=== PATIENT | male | born 1965 | race Caucasian/White ===

== ENCOUNTER 2019-09-18 02:48 | Inpatient (IN) | payer MEDICAID ==
[~2019-09-18] VITALS: Ht 182.9 cm; Wt 61.7 kg
[2019-09-18 02:30] VITALS: BP 133/87
--- NOTE | 2019-09-18 04:25 | NUR ---
The patient, PATRICK BROOKS, 54 y/o, M admitted by YORDAN TRENT MD, was given written information regarding hospital policies, unit procedures and contact persons. Valuables were checked and left with patient. took wedding band home .
[2019-09-18 07:00] VITALS: BP 119/77
[2019-09-18] MEDS: PIPERACILLIN/TAZOBACTAM 3.375 GM in IV NORMAL SALINE 50ML 50 ML IV SCH ×4 (07:23→23:07)
[2019-09-18 08:59] LABS: BASO % 0 % (0-3); EOS % 0 % (0-3); HEMOGLOBIN 13.8 g/dL (13.0-17.5); LYMPH # 1.4 x10^3/uL (1.0-4.8); LYMPH % 35 % (24-48); MEAN CORPUSCULAR HEMOGLOBIN 29 pg (25-35); MEAN CORPUSCULAR HGB CONC 33 g/dL (31-37); MEAN CORPUSCULAR VOLUME 87 fL (79-100); MONO # 0.1 x10^3/uL (0.0-1.1); MONO % 3 % (0-9); NEUT # 2.4 x10^3/uL (1.8-7.7); NEUT % 62 % (31-73); PLATELET COUNT 308 x10^3/uL (140-400); RED BLOOD COUNT 4.81 x10^6/uL (4.30-5.70); RED CELL DISTRIBUTION WIDTH 13.8 % (11.5-14.5); WHITE BLOOD COUNT 3.9 x10^3/uL (4.0-11.0)
[2019-09-18 09:10] LABS: CALCIUM 8.6 mg/dL (8.5-10.1); CREATININE 0.8 mg/dL (0.7-1.3); GFR 101.1; POTASSIUM 3.6 mmol/L (3.5-5.1)
--- NOTE | 2019-09-18 09:13 | HP ---
ADMIT DATE: 09/18/2019 HISTORY OF PRESENT ILLNESS: The patient is a 54-year-old male patient, who presented to the Emergency Room complaining of cough, shortness of breath, fever and sputum, which is clear. He also complained of weight loss of about 15 pounds. Apparently, all his family has been sick since [place], states that they all got over it except him. He is so short of breath that he had quit smoking 2 days ago. He apparently had a significant history of non-Hodgkin lymphoma in 2005 for which he underwent chemotherapy and radiation; however, he did not do any yearly followup. The patient has denied any recent travel, any drug abuse; however, he continued to smoke tobacco and marijuana. He was extensively investigated in the Emergency Room of [facility]. His lab work showed that his white cell count was normal. His chemistry was unremarkable except the lactic acid was slightly elevated at 2.3. His D-dimer was extremely high at 12.38 mg. Urinalysis was essentially unremarkable and toxic screen was positive for cannabinoids. His influenza A and B were negative. Given the elevated D-dimer, he had a chest x-ray, which showed that he has linear fibrotic changes in the left suprahilar region; left apical pleural scarring, thickening; he has also emphysematous changes that are seen with no lobar consolidation. A CT scan of the chest showed that the patient has no pulmonary arterial emboli; he has left upper lobe 8 x 4 x 3 cm thick-walled cavitation with wall thickness up to 1.2 cm with numerous satellite nodules, largest of which measures 4.1 cm, this raises a concern for cavitary lung malignancy with satellite lesion; has pulmonary edema, bronchial wall thickening, maybe bronchitis; 5 extensive areas of bony sclerosis throughout the thoracic and lumbar spine as well as right first rib, raising concern for osteoblastic metastatic disease or cyst lymphoma would also be a consideration given history of non-Hodgkin lymphoma. Therefore, he was transferred to [facility] to consult the oncologist as well as the administrative processor. PAST MEDICAL HISTORY: Significant for non-Hodgkin lymphoma treated with chemotherapy and radiation in 2005. PAST SURGICAL HISTORY: Significant for bilateral inguinal hernia repair. ALLERGIES: He has no known drug allergies. MEDICATIONS: He is currently on no medication. FAMILY HISTORY: He has 2 brothers and 2 sisters. His younger sister of leukemia at the age of 53. Father at the age of 57 because of diabetes and myocardial infarction. Mother in her 70s from massive cerebrovascular accident. SOCIAL HISTORY: He is , has 2 daughters and 1 son. He smokes a pack a day, does not drink alcohol, but does smoke marijuana. 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 REVIEW OF SYSTEMS: As per history of present illness. PHYSICAL EXAMINATION: GENERAL: On examining him, he looked well and was clearly in no apparent respiratory distress. No pallor, jaundice, cyanosis or thyromegaly. No jugular venous distention. No lower limb edema. However, he was clearly cachectic. VITAL SIGNS: His heart rate was 81, blood pressure was 109/78, temperature 97.7, respiratory rate 20 and oxygen saturation was 96%. HEAD, EYES, EARS, NOSE AND THROAT: Showed normocephalic, atraumatic. NECK: Supple. HEART: Showed normal first and second heart sounds. No gallop or murmur. CHEST: Showed central trachea, equal bilateral expansion, air entry, vesicular breath sounds. I could not appreciate any crepitation or rhonchi. ABDOMEN: Distended, soft, nontender. NEUROLOGICAL: He was awake, alert, responding appropriately. All his cranial nerves are intact. EXTREMITIES: He moves extremities without difficulty, ambulates without assistance or assistive devices. LABORATORY DATA: His white cell count was 7000, hemoglobin 14, hematocrit 43, MCV 88 and platelet count 291,000 with normal manual differential. His prothrombin time was 9.9, INR was 1, APTT was 23, and D-dimer was 12.38. His chemistry showed a serum sodium of 142, potassium 4, chloride 105, bicarbonate 27, anion gap of 10, BUN 13, creatinine 0.7, estimated GFR was 118 mL per minute, his glucose was 113, calcium was 8.7. Lactic acid was 2.3. Magnesium was 1.9. His total bilirubin, AST and ALT were normal. Alkaline phosphatase slightly elevated. CK was 60. Beta natriuretic peptide was 172. Total protein 7, albumin was 3.3 and serum lipase was 153. Urinalysis was essentially unremarkable. Toxic screen was positive for cannabinoids. His influenza A and B were negative. PLAN: I did start him on IV Zosyn, and I have consulted the administrative processor as well as the oncologist for possible either an abscess or cavitating malignancy. YORDAN TRENT MD DR: KIERAN/pop JOB#: [id number] / [id number]
--- NOTE | 2019-09-18 09:19 | CONS ---
DATE OF CONSULTATION: 09/18/2019 MEDICAL ONCOLOGY CONSULTATION REQUESTING PHYSICIAN: Dr. Azucena Farooq. REASON FOR CONSULTATION: Left upper lobe lung mass along with satellite lung lesions and bone lesions concerning for malignancy. HISTORY OF PRESENT ILLNESS: The patient is a 54-year-old gentleman who has had dry cough, poor appetite and feeling sick since 08/2019. He reports a 15-pound weight loss and poor appetite during this period. He denies any hemoptysis. No significant dyspnea. No chest pain. No fevers, chills or night sweats. He presented to with these complaints on 09/17/2019. He had mild symptoms of dyspnea at that point. He underwent a CT angiogram of the chest with contrast on 09/17/2019 at , which revealed left upper lobe, thick-walled cavitation with wall thickness of up to 1.3 cm with a total size of the lesion measuring 8 x 4 x 3 cm with numerous satellite nodules, largest of which is 4.1 cm raising a concern for cavitary lung malignancy with satellite lesions. There is evidence of pulmonary emphysema. Extensive area of bony sclerosis throughout the thoracic and lumbar spine as well as the right 1st rib, raising concern for osteoblastic metastatic disease. Lymphoma is also in the differential diagnosis. I was asked to see the patient for further evaluation of these lesions and concern for malignancy. PAST MEDICAL HISTORY: Non-Hodgkin's lymphoma in 2006, status post chemotherapy by Dr. Saravia. He reports that he achieved complete remission. He mentions that he had lesions in the peripancreatic lymph nodes and in the colon. SOCIAL HISTORY: He has a history of cigarette smoking under a pack a day since the age of 21. Approximately, he had a [id number] smoking history at the time of admission. FAMILY HISTORY: Mother had stroke. He is not sure if she had a malignancy. REVIEW OF SYSTEMS: A 12-point review of system was performed. Pertinent positives are mentioned in the history of present illness. Rest of the system review is negative. PHYSICAL EXAMINATION: GENERAL APPEARANCE: The patient is a 54-year-old gentleman who is in no acute cardiorespiratory distress. VITAL SIGNS: Blood pressure 119/77, temperature 98.6. HEENT: Head is atraumatic, normocephalic. EYES: No icterus. NECK: Supple. CHEST: Bilaterally symmetrical. HEART: S1, S2 normal. ABDOMEN: Soft, nontender. CENTRAL NERVOUS SYSTEM: No focal deficits. LYMPHATICS: No lymphadenopathy. SKIN: No rashes. PSYCHOLOGIC: Mood and affect are appropriate. RADIOLOGICAL STUDIES: CT angiogram of the chest on 09/17/2019 revealed left upper lobe lung lesion with satellite nodules and bone sclerosis. IMPRESSION AND PLAN: 1. Lung mass involving the left upper lobe measuring 8 x 4 x [address] scan of the chest on 09/17/2019 with thick walled cavitation and numerous satellite nodules and bony sclerosis throughout the thoracic and lumbar spine as well as the right 1st rib, raising the concern for malignancy. I will obtain bone scan and CT abdomen and pelvis and CT scan of the head. I will consult Interventional Radiology for biopsy of the right rib lesion or one of the bony lesions. If that is not feasible, then I would recommend a biopsy of the lung lesion. I would also recommend consulting Pulmonary Medicine for any further input. I discussed with the patient regarding the concern for malignancy, which could be a primary lung cancer because of history of smoking versus lymphoma, which is less likely. I will continue to follow closely. 2. Non-Hodgkin's lymphoma diagnosed in 2005 involving the abdomen. He mentions that he had peripancreatic lymph nodes and colon involvement at that time and he was treated with chemotherapy by Dr. Saravia and he achieved complete remission. No clinical evidence of lymphadenopathy on examination. 3. I discussed with Dr. Farooq. OSMEL ALEJANDRO MD DR: THI/pop JOB#: [id number] / [id number]
[2019-09-18] MEDS ORDERED: IOHEXOL 300 MG/ML 100ML VIAL. IV ONE (09:30)
[2019-09-18] MEDS ORDERED: IOHEXOL 240 MG/ML 50ML VIAL. PO ONE (09:30)
[2019-09-18] MEDS ORDERED: CONTRAST GIVEN. MC PRN (09:30)
[2019-09-18 11:00] VITALS: BP 116/77
--- NOTE | 2019-09-18 13:06 | RAD ---
Examination: CT HEAD WO/W CONTRAST History: Lung mass. History of non-Hodgkin's lipoma. Assessment for metastatic involvement. Comparison/Correlation: None Findings: Axial images were obtained prior to and following IV contrast. Coronal reformatted images were provided. Ventricles are normal size. No intracranial hemorrhage, midline shift, or mass effect. No abnormal enhancement. Mild mucosal thickening of ethmoid air cells noted. Deformity of the left mastoid air cells noted. Correlate with previous infarction. Impression: No suspicious process. No metastasis suspected. Consider MRI of the brain without and with contrast if able for more definitive assessment if clinically desired. PQRS Compliance Statement: One or more of the following individualized dose reduction techniques were utilized for this examination: 1. Automated exposure control 2. Adjustment of the mA and/or kV according to patient size 3. Use of iterative reconstruction technique Electronically signed by: Wiliam Chow MD (09/18/2019 1:03 PM) [facility]
--- NOTE | 2019-09-18 14:13 | RAD ---
Examination: CT ABD PELV W/ORAL IV CONTRAST History: Lung mass Comparison/Correlation: CT chest abdomen and pelvis with contrast 10/23/2009 Findings: Axial images of the abdomen and pelvis were obtained following IV and oral contrast. Right lung bulla at the basilar aspect is small in size. Small loculated pericardial effusion about the right base noted. Ill-defined right hepatic lobe 1.7 cm diameter low-attenuation lesion is unchanged compared to previous exam. Gallbladder fossa is unremarkable. Spleen is unremarkable. Pancreas is unremarkable. Adrenal glands are unremarkable. Right renal simple low-attenuation cystic structure is too small to characterize is stable. Left renal superior pole cyst present. No inflammatory change about the cecum. No bowel obstruction or external gas. No ascites or pelvic free fluid. Osteopenia is noted. Schmorl's node at L2 and L3 superior endplates noted. Bilateral sacroiliac joint fusion noted. No ascites or pelvic free fluid. No enlarged abdominal or pelvic lymph nodes. Impression: No suspicious mass or enlarged lymph nodes. PQRS Compliance Statement: One or more of the following individualized dose reduction techniques were utilized for this examination: 1. Automated exposure control 2. Adjustment of the mA and/or kV according to patient size 3. Use of iterative reconstruction technique Electronically signed by: Wiliam Chow MD (09/18/2019 2:10 PM) [facility]
--- NOTE | 2019-09-18 14:20 | RAD ---
Examination: BONE SCAN WHOLE BODY History: Lung mass Comparison/Correlation: 09/18/2019 CT abdomen and pelvis with contrast, 10/23/2009 CT chest abdomen and pelvis with contrast Findings: 26 mCi technetium 99m MDP was intravenously administered for purposes of whole body bone scintigraphy. Uptake of radiotracer involving the right first rib diffusely is present corresponding to sclerosis seen on 10/23/2009 CT exam likely representing Paget's disease. Somewhat high in intensity of uptake involving the first rib articulation with the manubrium is seen likely representing degenerative change. This also is noted involving the left second rib anterior costochondral junction likely representing degenerative change. Mild linear uptake involving the right lateral margin of the sternum is evident. Uptake at T11 level likely representing costovertebral junction degenerative change noted. Mild L1 superior vertebral body uptake is present without suspicious associated finding on CT exam. Uptake of radiotracer by the kidneys and urinary bladder is seen. Uptake involving the extremities is unremarkable. Impression: Indeterminate uptake involving the right sternum laterally. Correlate with recent CT chest. No suspicious uptake of radiotracer otherwise seen. Electronically signed by: Wiliam Chow MD (09/18/2019 2:17 PM) [facility]
[2019-09-18 15:00] VITALS: BP 116/85
--- NOTE | 2019-09-18 17:59 | PDOC ---
PULMONARY PROGRESS NOTES Vitals Vital Signs Date Time Temp Pulse Resp B/P (MAP) Pulse Ox O2 Delivery O2 Flow Rate FiO2 09/18/19 15:00 98.1 77 16 116/85 (95) 95 Room Air 98.1 Labs Laboratory Tests Test 09/18/19 08:15 White Blood Count 3.9 x10^3/uL (4.0-11.0) Red Blood Count 4.81 x10^6/uL (4.30-5.70) Hemoglobin 13.8 g/dL (13.0-17.5) Hematocrit 42.0 % (39.0-53.0) Mean Corpuscular Volume 87 fL (79-100) Mean Corpuscular Hemoglobin 29 pg (25-35) Mean Corpuscular Hemoglobin Concent 33 g/dL (31-37) Red Cell Distribution Width 13.8 % (11.5-14.5) Platelet Count 308 x10^3/uL (140-400) Neutrophils (%) (Auto) 62 % (31-73) Lymphocytes (%) (Auto) 35 % (24-48) Monocytes (%) (Auto) 3 % (0-9) Eosinophils (%) (Auto) 0 % (0-3) Basophils (%) (Auto) 0 % (0-3) Neutrophils # (Auto) 2.4 x10^3/uL (1.8-7.7) Lymphocytes # (Auto) 1.4 x10^3/uL (1.0-4.8) Monocytes # (Auto) 0.1 x10^3/uL (0.0-1.1) Eosinophils # (Auto) 0.0 x10^3/uL (0.0-0.7) Basophils # (Auto) 0.0 x10^3/uL (0.0-0.2) Sodium Level 140 mmol/L (136-145) Potassium Level 3.6 mmol/L (3.5-5.1) Chloride Level 102 mmol/L (98-107) Carbon Dioxide Level 27 mmol/L (21-32) Anion Gap 11 (6-14) Blood Urea Nitrogen 8 mg/dL (8-26) Creatinine 0.8 mg/dL (0.7-1.3) Estimated GFR (Cockcroft-Gault) 101.1 Glucose Level 139 mg/dL (70-99) Calcium Level 8.6 mg/dL (8.5-10.1) Laboratory Tests Test 09/18/19 08:15 White Blood Count 3.9 x10^3/uL (4.0-11.0) Red Blood Count 4.81 x10^6/uL (4.30-5.70) Hemoglobin 13.8 g/dL (13.0-17.5) Hematocrit 42.0 % (39.0-53.0) Mean Corpuscular Volume 87 fL (79-100) Mean Corpuscular Hemoglobin 29 pg (25-35) Mean Corpuscular Hemoglobin Concent 33 g/dL (31-37) Red Cell Distribution Width 13.8 % (11.5-14.5) Platelet Count 308 x10^3/uL (140-400) Neutrophils (%) (Auto) 62 % (31-73) Lymphocytes (%) (Auto) 35 % (24-48) Monocytes (%) (Auto) 3 % (0-9) Eosinophils (%) (Auto) 0 % (0-3) Basophils (%) (Auto) 0 % (0-3) Neutrophils # (Auto) 2.4 x10^3/uL (1.8-7.7) Lymphocytes # (Auto) 1.4 x10^3/uL (1.0-4.8) Monocytes # (Auto) 0.1 x10^3/uL (0.0-1.1) Eosinophils # (Auto) 0.0 x10^3/uL (0.0-0.7) Basophils # (Auto) 0.0 x10^3/uL (0.0-0.2) Sodium Level 140 mmol/L (136-145) Potassium Level 3.6 mmol/L (3.5-5.1) Chloride Level 102 mmol/L (98-107) Carbon Dioxide Level 27 mmol/L (21-32) Anion Gap 11 (6-14) Blood Urea Nitrogen 8 mg/dL (8-26) Creatinine 0.8 mg/dL (0.7-1.3) Estimated GFR (Cockcroft-Gault) 101.1 Glucose Level 139 mg/dL (70-99) Calcium Level 8.6 mg/dL (8.5-10.1) Impression . NOTE DICTATED CAVITARY MASS ZEINA D/W DR ARITA AND FLAVIA WORK UP IN PROGRESS SANJU DELAROSA MD Sep 18, 2019 17:59
[2019-09-18] MEDS ORDERED: ALBUTEROL SULFATE 2.5 MG/3 ML NEBU. NEB PRN (18:00)
[2019-09-18] MEDS ORDERED: TUBERCULIN PPD 5TUB.UNIT 0.1 ML TEST. ID ONE (18:15)
[2019-09-18] MEDS: cefTRIAXone IV Push 1 GM VIAL. IVP SCH (18:24)
[2019-09-18 19:00] VITALS: BP 105/70
[2019-09-18] MEDS: ALBUTEROL SULFATE 2.5 MG/3 ML NEBU. NEB SCH (20:00)
[2019-09-18] MEDS: DOXYCYCLINE HYCLATE 100 MG in IV DEXTROSE 5% 100ML 100 ML IV SCH (22:23)
[2019-09-18 23:00] VITALS: BP 138/88
[2019-09-19] VITALS (18 sets, daily range): BP systolic 105–130; BP diastolic 60–88
--- NOTE | 2019-09-19 01:07 | CONS ---
DATE OF CONSULTATION: 09/18/2019 ATTENDING PHYSICIAN: Dr. Farooq. REASON FOR CONSULTATION: The patient seen in pulmonary consultation at the request of Dr. Farooq for abnormal CT chest. HISTORY OF PRESENT ILLNESS: The patient is a 54-year-old that has been short of breath now for about a week. He became sick on late part of August, had a cold, maybe flu-like symptoms. He presented with increasing shortness of breath, cough, mostly nonproductive. A CT angiogram was obtained rule out PE. There was no evidence of pulmonary embolism. There were several findings including a thick wall cavitary lesion in the right upper lobe. There were also some numerous satellite nodules. I was asked to see him in consultation. The patient denies emesis. No hemoptysis. He has had some shaking chills in the past. He has not had any cigarettes since he became ill. He was seen in the consultation by Dr. Padron. I have discussed the case with him. The patient has a history of non-Hodgkin's lymphoma diagnosed in 2005. There was evidence on CT scan raising the possibility of osteoblastic metastatic disease. PAST MEDICAL HISTORY: COPD, undiagnosed; tobacco dependent; non-Hodgkin lymphoma, status post chemotherapy in 2005. 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 FAMILY HISTORY: No family history of lung malignancy. REVIEW OF SYSTEMS: As indicated above, otherwise, a 10-point system was reviewed and negative. CURRENT MEDICATIONS: List was reviewed. ALLERGIES: No known drug allergies. PHYSICAL EXAMINATION: VITAL SIGNS: Stable. O2 saturation was greater than 92%, currently on room air. HEENT: Eyes, the sclerae were nonicteric. NECK: Jugular venous distention was not elevated. No lymphadenopathy. CHEST: Full expansion. LUNGS: Adequate air flow with expiratory wheeze. CARDIOVASCULAR: Regular rate and rhythm with S1, S2, no S3. ABDOMEN: Soft, nontender, nondistended. EXTREMITIES: No clubbing, cyanosis, or edema. LABORATORY DATA: Reviewed. White count was low. Hemoglobin and hematocrit were noted. Electrolytes were noted. IMPRESSION: 1. Abnormal CT scan revealing left upper lobe thick wall cavitary mass. 2. Severe emphysema. 3. Acute exacerbation of chronic obstructive pulmonary disease. 4. Multiple pulmonary satellite nodules. 5. Possible osteoblastic activity seen on CT chest, right 1st rib. 6. Tobacco dependent, recently quit tobacco. 7. History of lymphoma. PLAN: The above was discussed with Dr. Frausto. I recommended we proceed with a biopsy in the left upper lobe mass sending it for culture. The concern is malignancy versus infectious process. I have ordered a TB spot test. For now, we will empirically treat for pneumonia. Follow clinical course and make adjustments as deemed necessary. I do appreciate the privilege in sharing in patient's care. SANJU DELAROSA MD DR: FARIHA/pop JOB#: [id number] / [id number]
[2019-09-19] MEDS: PIPERACILLIN/TAZOBACTAM 3.375 GM in IV NORMAL SALINE 50ML 50 ML IV SCH ×4 (05:56→23:03)
[2019-09-19] MEDS: ALBUTEROL SULFATE 2.5 MG/3 ML NEBU. NEB SCH ×4 (07:30→21:44)
[2019-09-19 08:10] LABS: PROTHROMBIN TIME PATIENT 12.4 SEC (11.7-14.0)
[2019-09-19] MEDS: DOXYCYCLINE HYCLATE 100 MG in IV DEXTROSE 5% 100ML 100 ML IV SCH ×2 (08:39→20:36)
[2019-09-19] MEDS ORDERED: LIDOCAINE WITH 8.4% SOD BICARB 3 ML DISP.SYRIN. ONE ×2 (12:34→12:35)
--- NOTE | 2019-09-19 12:58 | PN ---
DATE: 09/19/2019 SUBJECTIVE: The patient is resting flat, comfortably in bed, in no apparent distress. He was admitted as a transfer from [facility] Emergency Room with cough, shortness of breath, fever, sputum and also weight loss of about [address] scan showed he has left upper lobe 8 x 4 x 3 cm thick walled cavitation with wall thickness up to 1.2 cm numerous satellite nodules, largest was 4.1 cm. There is concern for cavitary lung malignancy with satellite lesions. He was seen by the oncologist as well as corner former, Dr. Olson recommended lung biopsy. Apparently, the patient is scheduled to have done today. He is n.p.o. When questioned him this morning, he looked well. PHYSICAL EXAMINATION: GENERAL: When I saw him, he was resting flat, comfortably in bed, in no apparent respiratory distress, pale, but no jaundice, cyanosis, lymphadenopathy or thyromegaly. No jugular venous distention. No lower limb edema. VITAL SIGNS: His heart rate was 78, blood pressure 111/75, temperature 98.1, respiratory rate was 18 and oxygen saturation was 94%. The rest of exam is stable. LABORATORY DATA: Showed a white cell count 3900, hemoglobin 14, hematocrit 42, MCV 87 and platelet count 308,000. Serum sodium 140, potassium 3.6, chloride 102, bicarbonate 27, anion gap of 11, BUN 8, creatinine 0.8, estimated GFR was 101. Glucose 139, calcium was 8.6. ASSESSMENT: 1. Abnormal CT revealing left upper lobe thick-walled cavitary mass. 2. Severe emphysema. 3. Acute exacerbation of chronic obstructive pulmonary disease. 4. Multiple pulmonary satellite nodules. 5. Osteoblastic activity seen on CT. 6. History of non-Hodgkin lymphoma. 7. Tobacco dependence. YORDAN TRENT MD DR: KIERAN/pop JOB#: [id number] / [id number]
--- NOTE | 2019-09-19 13:00 | PDOC ---
PROGRESS NOTES Subjective Subjective HPI - f/u of Lung mass ROS - no CP Objective Objective Vital Signs Date Time Temp Pulse Resp B/P (MAP) Pulse Ox O2 Delivery O2 Flow Rate FiO2 09/19/19 11:44 94 Room Air 09/19/19 11:00 98.2 75 16 121/80 (94) 98.2 Intake and Output 09/19/19 07:00 Intake Total 340 ml Balance 340 ml Intake Oral 240 ml IV Total 100 ml # Voids 5 Physical Exam Heart: Normal S1, Normal S2 General: Alert, Oriented X3, No acute distress Lungs: Clear to auscultation Neuro: Normal speech Psych/Mental Status: Mental status NL Assessment Assessment IMPRESSION AND PLAN: 1. Lung mass involving the left upper lobe measuring 8 x 4 x [address] scan of the chest on 09/17/2019 with thick walled cavitation and numerous satellite nodules and bony sclerosis throughout the thoracic and lumbar spine as well as the right 1st rib, raising the concern for malignancy. Bone scan 09/18/19: Indeterminate uptake involving the right sternum laterally. CT abdomen and pelvis 09/18/19: No suspicious mass or enlarged lymph nodes CT scan of the head - neg I d/w Dr Olson - ZEINA mass bx planned. 2. Non-Hodgkin's lymphoma diagnosed in 2005 involving the abdomen. He mentions that he had peripancreatic lymph nodes and colon involvement at that time and he was treated with chemotherapy by Dr. Saravia and he achieved complete remission. No clinical evidence of lymphadenopathy on examination. 3. I discussed with Dr. Farooq. Comment Review of Relevant I have reviewed the following items maryam (where applicable) has been applied. Labs Laboratory Tests Test 09/18/19 08:15 09/19/19 04:10 White Blood Count 3.9 x10^3/uL (4.0-11.0) Red Blood Count 4.81 x10^6/uL (4.30-5.70) Hemoglobin 13.8 g/dL (13.0-17.5) Hematocrit 42.0 % (39.0-53.0) Mean Corpuscular Volume 87 fL (79-100) Mean Corpuscular Hemoglobin 29 pg (25-35) Mean Corpuscular Hemoglobin Concent 33 g/dL (31-37) Red Cell Distribution Width 13.8 % (11.5-14.5) Platelet Count 308 x10^3/uL (140-400) Neutrophils (%) (Auto) 62 % (31-73) Lymphocytes (%) (Auto) 35 % (24-48) Monocytes (%) (Auto) 3 % (0-9) Eosinophils (%) (Auto) 0 % (0-3) Basophils (%) (Auto) 0 % (0-3) Neutrophils # (Auto) 2.4 x10^3/uL (1.8-7.7) Lymphocytes # (Auto) 1.4 x10^3/uL (1.0-4.8) Monocytes # (Auto) 0.1 x10^3/uL (0.0-1.1) Eosinophils # (Auto) 0.0 x10^3/uL (0.0-0.7) Basophils # (Auto) 0.0 x10^3/uL (0.0-0.2) Sodium Level 140 mmol/L (136-145) Potassium Level 3.6 mmol/L (3.5-5.1) Chloride Level 102 mmol/L (98-107) Carbon Dioxide Level 27 mmol/L (21-32) Anion Gap 11 (6-14) Blood Urea Nitrogen 8 mg/dL (8-26) Creatinine 0.8 mg/dL (0.7-1.3) Estimated GFR (Cockcroft-Gault) 101.1 Glucose Level 139 mg/dL (70-99) Calcium Level 8.6 mg/dL (8.5-10.1) Prothrombin Time 12.4 SEC (11.7-14.0) Prothromb Time International Ratio 1.0 (0.8-1.1) Activated Partial Thromboplast Time 29 SEC (24-38) Laboratory Tests Test 09/19/19 04:10 Prothrombin Time 12.4 SEC (11.7-14.0) Prothromb Time International Ratio 1.0 (0.8-1.1) Activated Partial Thromboplast Time 29 SEC (24-38) Medications Current Medications Piperacillin Sod/ Tazobactam Sod 3.375 gm/Sodium Chloride 50 ml @ 100 mls/hr Q6HRS IV Last administered on 09/19/19at 12:15; Start 09/18/19 at 07:00 Iohexol (Omnipaque 240 Mg/ml) 30 ml 1X ONCE PO ; Start 09/18/19 at 09:30; Stop 09/18/19 at 09:31; Status DC Iohexol (Omnipaque 300 Mg/ml) 75 ml 1X ONCE IV ; Start 09/18/19 at 09:30; Stop 09/18/19 at 09:31; Status DC Info (CONTRAST GIVEN -- Rx MONITORING) 1 each PRN DAILY PRN MC SEE COMMENTS; Start 09/18/19 at 09:30; Stop 09/20/19 at 09:29 Ceftriaxone Sodium (Rocephin) 1 gm Q24H IVP Last administered on 09/18/19at 18:24; Start 09/18/19 at 18:00 Doxycycline Hyclate 100 mg/ Dextrose 100 ml @ 50 mls/hr Q12HR IV Last administered on 09/19/19at 08:39; Start 09/18/19 at 21:00 Albuterol Sulfate (Ventolin Neb Soln) 2.5 mg RTQID NEB Last administered on 09/19/19at 11:44; Start 09/18/19 at 20:00 Albuterol Sulfate (Ventolin Neb Soln) 2.5 mg PRN Q2HR PRN NEB DYSPNEA; Start 09/18/19 at 18:00 Tuberculin PPD (Tubersol) 0.1 ml 1X ONCE ID Last administered on 09/18/19at 18:15; Start 09/18/19 at 18:15; Stop 09/18/19 at 18:16; Status DC Lidocaine HCl (Buffered Lidocaine 1%) 3 ml STK-MED ONCE .ROUTE ; Start 09/19/19 at 12:34; Stop 09/19/19 at 12:35; Status DC Lidocaine HCl (Buffered Lidocaine 1%) 3 ml STK-MED ONCE .ROUTE ; Start 09/19/19 at 12:35; Stop 09/19/19 at 12:36; Status DC Vitals/I & O Vital Sign - Last 24 Hours 09/18/19 09/18/19 09/18/19 09/18/19 15:00 19:00 20:00 23:00 Temp 98.1 98.3 98.5 98.1 98.3 98.5 Pulse 77 67 77 Resp 16 18 18 B/P (MAP) 116/85 (95) 105/70 (82) 138/88 (105) Pulse Ox 95 94 93 O2 Delivery Room Air Room Air Room Air Room Air 09/19/19 09/19/19 09/19/19 09/19/19 03:00 07:00 07:22 08:00 Temp 98.1 98.2 98.1 98.2 Pulse 78 82 Resp 18 16 B/P (MAP) 111/75 (87) 124/79 (94) Pulse Ox 94 93 94 O2 Delivery Room Air Room Air Room Air Room Air 09/19/19 09/19/19 11:00 11:44 Temp 98.2 98.2 Pulse 75 Resp 16 B/P (MAP) 121/80 (94) Pulse Ox 93 94 O2 Delivery Room Air Room Air Intake and Output 09/18/19 09/18/19 09/19/19 15:00 23:00 07:00 Intake Total 220 ml 120 ml Balance 220 ml 120 ml OSMEL ALEJANDRO MD Sep 19, 2019 12:59
[2019-09-19] MEDS ORDERED: MIDAZOLAM HCL/PF 2 MG/2 ML VIAL. ONE (13:04)
[2019-09-19] MEDS ORDERED: fentaNYL PF VIAL 100 MCG/2 ML VIAL ONE (13:04)
--- NOTE | 2019-09-19 13:59 | PDOC ---
PULMONARY PROGRESS NOTES Subjective NO SOA Vitals Vital Signs Date Time Temp Pulse Resp B/P (MAP) Pulse Ox O2 Delivery O2 Flow Rate FiO2 09/19/19 13:50 75 12 95 Nasal Cannula 2.0 09/19/19 11:00 98.2 121/80 (94) 98.2 General: Alert, No acute distress Lungs: Other (decrease bs) Cardiovascular: S1 Abdomen: Soft Neuro Exam: Alert Extremities: No Edema Skin: Warm Labs Laboratory Tests Test 09/18/19 08:15 09/19/19 04:10 White Blood Count 3.9 x10^3/uL (4.0-11.0) Red Blood Count 4.81 x10^6/uL (4.30-5.70) Hemoglobin 13.8 g/dL (13.0-17.5) Hematocrit 42.0 % (39.0-53.0) Mean Corpuscular Volume 87 fL (79-100) Mean Corpuscular Hemoglobin 29 pg (25-35) Mean Corpuscular Hemoglobin Concent 33 g/dL (31-37) Red Cell Distribution Width 13.8 % (11.5-14.5) Platelet Count 308 x10^3/uL (140-400) Neutrophils (%) (Auto) 62 % (31-73) Lymphocytes (%) (Auto) 35 % (24-48) Monocytes (%) (Auto) 3 % (0-9) Eosinophils (%) (Auto) 0 % (0-3) Basophils (%) (Auto) 0 % (0-3) Neutrophils # (Auto) 2.4 x10^3/uL (1.8-7.7) Lymphocytes # (Auto) 1.4 x10^3/uL (1.0-4.8) Monocytes # (Auto) 0.1 x10^3/uL (0.0-1.1) Eosinophils # (Auto) 0.0 x10^3/uL (0.0-0.7) Basophils # (Auto) 0.0 x10^3/uL (0.0-0.2) Sodium Level 140 mmol/L (136-145) Potassium Level 3.6 mmol/L (3.5-5.1) Chloride Level 102 mmol/L (98-107) Carbon Dioxide Level 27 mmol/L (21-32) Anion Gap 11 (6-14) Blood Urea Nitrogen 8 mg/dL (8-26) Creatinine 0.8 mg/dL (0.7-1.3) Estimated GFR (Cockcroft-Gault) 101.1 Glucose Level 139 mg/dL (70-99) Calcium Level 8.6 mg/dL (8.5-10.1) Prothrombin Time 12.4 SEC (11.7-14.0) Prothromb Time International Ratio 1.0 (0.8-1.1) Activated Partial Thromboplast Time 29 SEC (24-38) Laboratory Tests Test 09/19/19 04:10 Prothrombin Time 12.4 SEC (11.7-14.0) Prothromb Time International Ratio 1.0 (0.8-1.1) Activated Partial Thromboplast Time 29 SEC (24-38) Impression . 1. Abnormal CT scan revealing left upper lobe thick wall cavitary mass., possible infected bullae/ ? malignancy 2. Severe emphysema. 3. Acute exacerbation of chronic obstructive pulmonary disease. 4. Prior h/o PTX 5. Possible osteoblastic activity seen on CT chest, right 1st rib., sternum 6. Tobacco dependent, recently quit tobacco. 7. History of lymphoma. Plan . PLAN: 1.The above was discussed with Dr. Frausto. I recommended we proceed with a biopsy of sternum ,rather then left upper lobe mass due to high risk for PTX, patient had previous PTX which did not resolve with chest tube 2.For now, we will empirically treat for pneumonia. Follow clinical course and make adjustments as deemed necessary. 3. repeat ct chest in 4-6 weeks, If no improvement, PET and Bronch 4. Follow results of sternum biopsy BO BARRETT MD Sep 19, 2019 13:59
[2019-09-19] MEDS ORDERED: MIDAZOLAM HCL/PF 2 MG/2 ML VIAL. IV ONE (14:15)
[2019-09-19] MEDS ORDERED: fentaNYL PF VIAL 100 MCG/2 ML VIAL IV ONE (14:15)
[2019-09-19] MEDS ORDERED: LIDOCAINE WITH 8.4% SOD BICARB 3 ML DISP.SYRIN. IJ ONE (14:15)
--- NOTE | 2019-09-19 16:39 | RAD ---
CT-guided biopsy of sclerotic sternal lesion with increased activity, recent bone scan. Uncertain etiology. 09/19/2019 2:35 PM Indication: Multiple sclerotic lesions. Concern for sclerotic metastasis. Discussion: The risks and benefits of the procedure, including but not limited to, bleeding and infection were discussed patient. Informed consent was obtained. The patient was brought to the CT scanner and placed in the prone position. A timeout procedure was performed CT imaging of the chest demonstrated mild sclerosis involving the sternum. The overlying soft tissues were prepped and draped using maximum sterile barrier technique. 1% lidocaine without epinephrine was administered for local anesthesia. Under intermittent CT guidance, an OncControl needle was advanced into the targeted area within the sternum. A core biopsy was obtained. Samples placed in formalin. Needle was removed and manual pressure held to achieve hemostasis. No immediate complications were identified. The procedure was performed under conscious sedation including continuous cardiopulmonary monitoring via dedicated sedation nurse. Sedation time: 30 minutes Impression: Successful CT-guided biopsy of the sternum. PQRS Compliance Statement: One or more of the following individualized dose reduction techniques were utilized for this examination: 1. Automated exposure control 2. Adjustment of the mA and/or kV according to patient size 3. Use of iterative reconstruction technique
[2019-09-19] MEDS: cefTRIAXone IV Push 1 GM VIAL. IVP SCH (18:18)
[2019-09-20 03:24] VITALS: BP 105/75
[2019-09-20] MEDS: PIPERACILLIN/TAZOBACTAM 3.375 GM in IV NORMAL SALINE 50ML 50 ML IV SCH (05:26)
[2019-09-20 07:00] VITALS: BP 113/81
[2019-09-20] MEDS: ALBUTEROL SULFATE 2.5 MG/3 ML NEBU. NEB SCH ×4 (07:15→19:26)
[2019-09-20] MEDS: DOXYCYCLINE HYCLATE 100 MG in IV DEXTROSE 5% 100ML 100 ML IV SCH ×2 (08:18→20:38)
[2019-09-20 11:00] VITALS: BP 108/78
--- NOTE | 2019-09-20 11:13 | PDOC ---
PROGRESS NOTES Subjective Subjective HPI - f/u of Lung mass ROS - no CP Objective Objective Vital Signs Date Time Temp Pulse Resp B/P (MAP) Pulse Ox O2 Delivery O2 Flow Rate FiO2 09/20/19 08:00 Room Air 09/20/19 07:15 95 09/20/19 07:00 98.0 80 16 113/81 (92) 98.0 09/19/19 14:35 2.0 Intake and Output 09/20/19 07:00 Intake Total 650 ml Balance 650 ml Intake Oral 650 ml # Voids 4 Physical Exam Heart: Normal S1, Normal S2 General: Alert, Oriented X3 Lungs: Clear to auscultation Neuro: Normal speech Psych/Mental Status: Mental status NL Assessment Assessment IMPRESSION AND PLAN: 1. Lung mass involving the left upper lobe measuring 8 x 4 x [address] scan of the chest on 09/17/2019 with thick walled cavitation and numerous satellite nodules and bony sclerosis throughout the thoracic and lumbar spine as well as the right 1st rib, raising the concern for malignancy. Bone scan 09/18/19: Indeterminate uptake involving the right sternum laterally. CT abdomen and pelvis 09/18/19: No suspicious mass or enlarged lymph nodes CT scan of the head - neg s/p sternum bx 09/19/2019. 2. Non-Hodgkin's lymphoma diagnosed in 2005 involving the abdomen. He mentions that he had peripancreatic lymph nodes and colon involvement at that time and he was treated with chemotherapy by Dr. Saravia and he achieved complete remission. No clinical evidence of lymphadenopathy on examination. 3. I discussed with Dr. Farooq. Comment Review of Relevant I have reviewed the following items maryam (where applicable) has been applied. Labs Laboratory Tests Test 09/19/19 04:10 Prothrombin Time 12.4 SEC (11.7-14.0) Prothromb Time International Ratio 1.0 (0.8-1.1) Activated Partial Thromboplast Time 29 SEC (24-38) Medications Current Medications Piperacillin Sod/ Tazobactam Sod 3.375 gm/Sodium Chloride 50 ml @ 100 mls/hr Q6HRS IV Last administered on 09/20/19at 05:26; Start 09/18/19 at 07:00; Stop 09/20/19 at 11:05; Status DC Iohexol (Omnipaque 240 Mg/ml) 30 ml 1X ONCE PO ; Start 09/18/19 at 09:30; Stop 09/18/19 at 09:31; Status DC Iohexol (Omnipaque 300 Mg/ml) 75 ml 1X ONCE IV ; Start 09/18/19 at 09:30; Stop 09/18/19 at 09:31; Status DC Info (CONTRAST GIVEN -- Rx MONITORING) 1 each PRN DAILY PRN MC SEE COMMENTS; Start 09/18/19 at 09:30; Stop 09/20/19 at 09:29; Status DC Ceftriaxone Sodium (Rocephin) 1 gm Q24H IVP Last administered on 09/19/19at 18:18 ; Start 09/18/19 at 18:00 Doxycycline Hyclate 100 mg/ Dextrose 100 ml @ 50 mls/hr Q12HR IV Last administered on 09/20/19at 08:18; Start 09/18/19 at 21:00 Albuterol Sulfate (Ventolin Neb Soln) 2.5 mg RTQID NEB Last administered on 09/20/19at 07:15; Start 09/18/19 at 20:00 Albuterol Sulfate (Ventolin Neb Soln) 2.5 mg PRN Q2HR PRN NEB DYSPNEA; Start 09/18/19 at 18:00 Tuberculin PPD (Tubersol) 0.1 ml 1X ONCE ID Last administered on 09/18/19at 18:15; Start 09/18/19 at 18:15; Stop 09/18/19 at 18:16; Status DC Lidocaine HCl (Buffered Lidocaine 1%) 3 ml STK-MED ONCE .ROUTE ; Start 09/19/19 at 12:34; Stop 09/19/19 at 12:35; Status DC Lidocaine HCl (Buffered Lidocaine 1%) 3 ml STK-MED ONCE .ROUTE ; Start 09/19/19 at 12:35; Stop 09/19/19 at 12:36; Status DC Midazolam HCl (Versed) 2 mg STK-MED ONCE .ROUTE ; Start 09/19/19 at 13:04; Stop 09/19/19 at 13:04; Status DC Fentanyl Citrate (Fentanyl 2ml Vial) 100 mcg STK-MED ONCE .ROUTE ; Start 09/19/19 at 13:04; Stop 09/19/19 at 13:04; Status DC Lidocaine HCl (Buffered Lidocaine 1%) 5 ml 1X ONCE IJ Last administered on 09/19/19at 14:05; Start 09/19/19 at 14:15; Stop 09/19/19 at 14:16; Status DC Midazolam HCl (Versed) 1 mg 1X ONCE IV Last administered on 09/19/19at 14:05; Start 09/19/19 at 14:15; Stop 09/19/19 at 14:16; Status DC Fentanyl Citrate (Fentanyl 2ml Vial) 50 mcg 1X ONCE IV Last administered on 09/19/19at 14:05; Start 09/19/19 at 14:15; Stop 09/19/19 at 14:16; Status DC Vitals/I & O Vital Sign - Last 24 Hours 09/19/19 09/19/19 09/19/19 09/19/19 11:44 13:39 13:44 13:50 Pulse 70 72 75 Resp 16 12 12 Pulse Ox 94 99 99 95 O2 Delivery Room Air Nasal Cannula Nasal Cannula Nasal Cannula O2 Flow Rate 2.0 2.0 2.0 09/19/19 09/19/19 09/19/19 09/19/19 13:55 13:59 14:06 14:35 Pulse 76 69 74 Resp 16 16 16 Pulse Ox 96 97 97 93 O2 Delivery Nasal Cannula Nasal Cannula Nasal Cannula Room Air O2 Flow Rate 2.0 2.0 2.0 2.0 09/19/19 09/19/19 09/19/19 09/19/19 15:00 15:29 15:55 16:06 Temp 97.9 97.9 Pulse 67 67 63 Resp 16 B/P (MAP) 116/81 (93) 116/81 (93) 124/60 (81) Pulse Ox 93 92 94 O2 Delivery Room Air Room Air 09/19/19 09/19/19 09/19/19 09/19/19 16:25 16:55 17:25 17:55 Pulse 63 62 B/P (MAP) 124/84 (97) 124/85 (98) 128/85 (99) 130/88 (102) Pulse Ox 91 91 93 09/19/19 09/19/19 09/19/19 09/19/19 18:55 19:00 20:00 21:44 Temp 98.3 98.3 Pulse 65 74 Resp 20 B/P (MAP) 128/82 (97) 110/80 (90) Pulse Ox 95 96 O2 Delivery Room Air Room Air Room Air 09/20/19 09/20/19 09/20/19 09/20/19 03:24 07:00 07:15 08:00 Temp 98.0 98.0 98.0 98.0 Pulse 65 80 Resp 18 16 B/P (MAP) 105/75 (85) 113/81 (92) Pulse Ox 93 95 95 O2 Delivery Room Air Room Air Room Air Room Air Intake and Output 09/19/19 09/19/19 09/20/19 15:00 23:00 07:00 Intake Total 150 ml 500 ml Balance 150 ml 500 ml OSMEL ALEJANDRO MD Sep 20, 2019 11:13
--- NOTE | 2019-09-20 14:15 | PDOC ---
PULMONARY PROGRESS NOTES Subjective NO SOA Vitals Vital Signs Date Time Temp Pulse Resp B/P (MAP) Pulse Ox O2 Delivery O2 Flow Rate FiO2 09/20/19 11:54 98 Room Air 09/20/19 11:00 98.1 107 16 108/78 (88) 98.1 09/19/19 14:35 2.0 General: Alert, No acute distress Lungs: Other (decrease bs) Cardiovascular: S1 Abdomen: Soft Neuro Exam: Alert Extremities: No Edema Skin: Warm Labs Laboratory Tests Test 09/19/19 04:10 Prothrombin Time 12.4 SEC (11.7-14.0) Prothromb Time International Ratio 1.0 (0.8-1.1) Activated Partial Thromboplast Time 29 SEC (24-38) Impression . 1. Abnormal CT scan revealing left upper lobe thick wall cavitary mass., possible infected bullae/ ? malignancy 2. Severe emphysema. 3. Acute exacerbation of chronic obstructive pulmonary disease. 4. Prior h/o PTX 5. Possible osteoblastic activity seen on CT chest, right 1st rib., sternum 6. Tobacco dependent, recently quit tobacco. 7. History of lymphoma. Plan . PLAN: 1. s/p biopsy of sternum Biopsy of left upper lobe mass was high risk for PTX, patient had previous PTX which did not resolve with chest tube 2.For now, we will empirically treat for pneumonia. Follow clinical course and make adjustments as deemed necessary. 3. repeat ct chest in 4-6 weeks, If no improvement, PET and Bronch 4. Follow results of sternum biopsy. 5. dc home once results of biopsy back BO BARRETT MD Sep 20, 2019 14:15
[2019-09-20 15:00] VITALS: BP 124/75
--- NOTE | 2019-09-20 15:18 | NUR ---
SW following. Discussed with RN, pt from home with , room air. RN advised no SW needs, per notes, pt to discharge home after results of biopsy. SW will revisit if consulted. No further SW needs.
--- NOTE | 2019-09-20 16:01 | PN ---
DATE: 09/20/2019 SUBJECTIVE: The patient is resting flat, sleeping comfortably, in no apparent distress. On questioning him, he denied any complaint, in particular denied any chest pain, denied any shortness of breath. He apparently has had a sternal biopsy instead of lung biopsy. It transpired that he has had before a pneumothorax that took long-time to resolve because of the air leak and he was continued on antibiotic for possible pneumonia. PHYSICAL EXAMINATION: GENERAL: When I examined him this morning, he looked well and was clearly in no apparent respiratory distress. No pallor, jaundice, cyanosis or thyromegaly. No jugular venous distention. No limb edema. VITAL SIGNS: His heart rate was 80, blood pressure was 113/81, temperature 98, respiratory rate was 16, and oxygen saturation was 95% on room air. HEAD, EYES, EARS, NOSE AND THROAT: Showed normocephalic, atraumatic. NECK: Supple. HEART: Normal first and second heart sounds. No gallop or murmur. CHEST: Clear to auscultation. No crepitation or rhonchi. ABDOMEN: Scaphoid, soft, nontender. NEUROLOGIC: He is grossly intact. His intake over the last 24 hours and output incompletely recorded. LABORATORY DATA: Showed hemoglobin 14, hematocrit 42 with normal white cell count and platelets. His chemistry showed also a BUN of 8, creatinine 0.8. ASSESSMENT: 1. Abnormal CT revealing left upper lobe, thick-walled cavity mass. 2. Severe emphysema. 3. Acute exacerbation of chronic obstructive pulmonary disease, multiple pulmonary satellite nodules. 4. Osteoblastic activity seen on CT scan. 5. History of non-Hodgkin lymphoma. 6. Tobacco dependence. PLAN: Plan is to continue with IV antibiotics. Await the result of the sternal biopsy. YORDAN TRENT MD DR: KIERAN/pop JOB#: [id number] / [id number]
[2019-09-20] MEDS: cefTRIAXone IV Push 1 GM VIAL. IVP SCH (18:09)
[2019-09-20 19:00] VITALS: BP 90/66
[2019-09-20 23:00] VITALS: BP 143/86
--- NOTE | 2019-09-20 23:11 | NUR ---
TB skin test on Right Forearm read at 09/20/2019 2300 negative, no induration noted no redness.
[2019-09-21 03:00] VITALS: BP 112/74
[2019-09-21] MEDS: ALBUTEROL SULFATE 2.5 MG/3 ML NEBU. NEB SCH ×2 (06:49→11:53)
[2019-09-21 07:00] VITALS: BP 103/66
[2019-09-21] MEDS: DOXYCYCLINE HYCLATE 100 MG in IV DEXTROSE 5% 100ML 100 ML IV SCH (08:30)
--- NOTE | 2019-09-21 09:14 | PDOC ---
PROGRESS NOTES Subjective Subjective HPI - f/u of lung mass ROS - no CP Objective Objective Vital Signs Date Time Temp Pulse Resp B/P (MAP) Pulse Ox O2 Delivery O2 Flow Rate FiO2 09/21/19 07:00 98.0 75 18 103/66 (78) 93 Room Air 98.0 09/19/19 14:35 2.0 Intake and Output 09/21/19 07:00 Intake Total 200 ml Balance 200 ml Intake Oral 200 ml # Voids 3 # Bowel Movements 1 Physical Exam Heart: Normal S1, Normal S2 General: Alert, Oriented X3 Lungs: Clear to auscultation Neuro: Normal speech Psych/Mental Status: Mental status NL Assessment Assessment IMPRESSION AND PLAN: 1. Lung mass involving the left upper lobe measuring 8 x 4 x [address] scan of the chest on 09/17/2019 with thick walled cavitation and numerous satellite nodules and bony sclerosis throughout the thoracic and lumbar spine as well as the right 1st rib, raising the concern for malignancy. Bone scan 09/18/19: Indeterminate uptake involving the right sternum laterally. CT abdomen and pelvis 09/18/19: No suspicious mass or enlarged lymph nodes CT scan of the head - neg s/p sternum bx 09/19/2019. Results pending, I d/w pathologist. 2. Non-Hodgkin's lymphoma diagnosed in 2005 involving the abdomen. He mentions that he had peripancreatic lymph nodes and colon involvement at that time and he was treated with chemotherapy by Dr. Saravia and he achieved complete remission. No clinical evidence of lymphadenopathy on examination. 3. I discussed with Dr. Farooq. 4. Bone lesions: Bone scan 09/18/19: Indeterminate uptake involving the right sternum laterally. Comment Review of Relevant I have reviewed the following items maryam (where applicable) has been applied. Medications Current Medications Piperacillin Sod/ Tazobactam Sod 3.375 gm/Sodium Chloride 50 ml @ 100 mls/hr Q6HRS IV Last administered on 09/20/19at 05:26; Start 09/18/19 at 07:00; Stop 09/20/19 at 11:05; Status DC Iohexol (Omnipaque 240 Mg/ml) 30 ml 1X ONCE PO ; Start 09/18/19 at 09:30; Stop 09/18/19 at 09:31; Status DC Iohexol (Omnipaque 300 Mg/ml) 75 ml 1X ONCE IV ; Start 09/18/19 at 09:30; Stop 09/18/19 at 09:31; Status DC Info (CONTRAST GIVEN -- Rx MONITORING) 1 each PRN DAILY PRN MC SEE COMMENTS; Start 09/18/19 at 09:30; Stop 09/20/19 at 09:29; Status DC Ceftriaxone Sodium (Rocephin) 1 gm Q24H IVP Last administered on 09/20/19at 18:09; Start 09/18/19 at 18:00 Doxycycline Hyclate 100 mg/ Dextrose 100 ml @ 50 mls/hr Q12HR IV Last administered on 09/21/19at 08:30; Start 09/18/19 at 21:00 Albuterol Sulfate (Ventolin Neb Soln) 2.5 mg RTQID NEB Last administered on 09/21/19at 06:49; Start 09/18/19 at 20:00 Albuterol Sulfate (Ventolin Neb Soln) 2.5 mg PRN Q2HR PRN NEB DYSPNEA; Start 09/18/19 at 18:00 Tuberculin PPD (Tubersol) 0.1 ml 1X ONCE ID Last administered on 09/18/19at 18:15; Start 09/18/19 at 18:15; Stop 09/18/19 at 18:16; Status DC Lidocaine HCl (Buffered Lidocaine 1%) 3 ml STK-MED ONCE .ROUTE ; Start 09/19/19 at 12:34; Stop 09/19/19 at 12:35; Status DC Lidocaine HCl (Buffered Lidocaine 1%) 3 ml STK-MED ONCE .ROUTE ; Start 09/19/19 at 12:35; Stop 09/19/19 at 12:36; Status DC Midazolam HCl (Versed) 2 mg STK-MED ONCE .ROUTE ; Start 09/19/19 at 13:04; Stop 09/19/19 at 13:04; Status DC Fentanyl Citrate (Fentanyl 2ml Vial) 100 mcg STK-MED ONCE .ROUTE ; Start 09/19/19 at 13:04; Stop 09/19/19 at 13:04; Status DC Lidocaine HCl (Buffered Lidocaine 1%) 5 ml 1X ONCE IJ Last administered on 09/19/19at 14:05; Start 09/19/19 at 14:15; Stop 09/19/19 at 14:16; Status DC Midazolam HCl (Versed) 1 mg 1X ONCE IV Last administered on 09/19/19at 14:05; Start 09/19/19 at 14:15; Stop 09/19/19 at 14:16; Status DC Fentanyl Citrate (Fentanyl 2ml Vial) 50 mcg 1X ONCE IV Last administered on 09/19/19at 14:05; Start 09/19/19 at 14:15; Stop 09/19/19 at 14:16; Status DC Vitals/I & O Vital Sign - Last 24 Hours 09/20/19 09/20/19 09/20/19 09/20/19 11:00 11:54 15:00 16:18 Temp 98.1 98.1 98.1 98.1 Pulse 107 82 Resp 16 18 B/P (MAP) 108/78 (88) 124/75 (91) Pulse Ox 95 98 92 98 O2 Delivery Room Air Room Air Room Air Room Air 09/20/19 09/20/19 09/20/19 09/20/19 19:00 19:27 20:00 23:00 Temp 98.0 98.0 98.0 98.0 Pulse 74 86 Resp 18 18 B/P (MAP) 90/66 (74) 143/86 (105) Pulse Ox 98 96 97 O2 Delivery Room Air Room Air Room Air Room Air 09/21/19 09/21/19 09/21/19 03:00 06:50 07:00 Temp 98.0 98.0 98.0 98.0 Pulse 86 75 Resp 18 18 B/P (MAP) 112/74 (87) 103/66 (78) Pulse Ox 94 97 93 O2 Delivery Room Air Room Air Room Air Intake and Output 09/20/19 09/20/19 09/21/19 15:00 23:00 07:00 Intake Total 200 ml Balance 200 ml Nutrition Consultation Dietary Evaluation: Recommendations by RD: Dietary education by RD, Increase Calorie Intake, Protein supplementation Comments: ensure tid Expected Outcomes/Goals: to meet >75% est nutr needs Interpretation of weight loss: >5% in 1 month Malnutrition Findings: Weight Status: Underweight OSMEL ALEJANDRO MD Sep 21, 2019 09:14
[2019-09-21 09:33] LABS: HEMATOCRIT 41.5 % (39.0-53.0); HEMOGLOBIN 13.7 g/dL (13.0-17.5); RED BLOOD COUNT 4.82 x10^6/uL (4.30-5.70); RED CELL DISTRIBUTION WIDTH 13.8 % (11.5-14.5)
--- NOTE | 2019-09-21 09:38 | PN ---
DATE: SUBJECTIVE: The patient is resting flat in bed comfortably, in no apparent distress. On questioning him, he denied any complaint. The nursing staff did not voice any concerns, but he had an uneventful night. PHYSICAL EXAMINATION: GENERAL: When I examined him, he looked well and was clearly in no apparent respiratory distress. No pallor, jaundice, cyanosis or thyromegaly. ____ edema. VITAL SIGNS: His heart rate was 75, blood pressure was 103/66, temperature 98, respiratory rate 18, and oxygen saturation was 93% on room air. The rest of clinical exam is stable. LABORATORY DATA: Showed a BUN of 8, creatinine 0.8. His hemoglobin was 13.8, hematocrit 42 with normal white cell count and platelets. ASSESSMENT: 1. Abnormal CT scan of the chest revealing left upper lobe with thick-walled cavity mass. 2. Severe emphysema. 3. Acute exacerbation of chronic obstructive disease. 4. Multiple pulmonary satellite nodules. 5. Osteoblastic activity on the CT scan. 6. History of non-Hodgkin lymphoma. 7. Tobacco dependence. PLAN: Continue with IV antibiotic. Continue with nebulized albuterol and Atrovent and await the result of the sternal biopsy. YORDAN TRENT MD DR: KIERAN/pop JOB#: [id number] / [id number]
[2019-09-21 09:53] LABS: ALBUMIN 2.9 g/dL (3.4-5.0); ALBUMIN/GLOBULIN RATIO 0.8 (1.0-1.7); CALCIUM 8.8 mg/dL (8.5-10.1); CREATININE 0.7 mg/dL (0.7-1.3); POTASSIUM 3.7 mmol/L (3.5-5.1); TOTAL BILIRUBIN 0.3 mg/dL (0.2-1.0); TOTAL PROTEIN 6.7 g/dL (6.4-8.2)
[2019-09-21 11:00] VITALS: BP 109/70
[2019-09-21] MEDS ORDERED: CEFD300C PO (11:31)
[2019-09-21] MEDS ORDERED: DOXY100C2 PO (11:31)
[2019-09-21] MEDS ORDERED: ALBU2.5V8 IH (11:31)
--- NOTE | 2019-09-21 12:23 | PDOC ---
PULMONARY PROGRESS NOTES Subjective NO SOA Vitals Vital Signs Date Time Temp Pulse Resp B/P (MAP) Pulse Ox O2 Delivery O2 Flow Rate FiO2 09/21/19 11:00 98.1 74 18 109/70 (83) 96 Room Air 98.1 General: Alert, No acute distress Lungs: Other (decrease bs) Cardiovascular: S1 Abdomen: Soft Neuro Exam: Alert Extremities: No Edema Skin: Warm Labs Laboratory Tests Test 09/21/19 09:05 White Blood Count 8.0 x10^3/uL (4.0-11.0) Red Blood Count 4.82 x10^6/uL (4.30-5.70) Hemoglobin 13.7 g/dL (13.0-17.5) Hematocrit 41.5 % (39.0-53.0) Mean Corpuscular Volume 86 fL (79-100) Mean Corpuscular Hemoglobin 29 pg (25-35) Mean Corpuscular Hemoglobin Concent 33 g/dL (31-37) Red Cell Distribution Width 13.8 % (11.5-14.5) Platelet Count 388 x10^3/uL (140-400) Sodium Level 142 mmol/L (136-145) Potassium Level 3.7 mmol/L (3.5-5.1) Chloride Level 106 mmol/L (98-107) Carbon Dioxide Level 26 mmol/L (21-32) Anion Gap 10 (6-14) Blood Urea Nitrogen 14 mg/dL (8-26) Creatinine 0.7 mg/dL (0.7-1.3) Estimated GFR (Cockcroft-Gault) 118.0 BUN/Creatinine Ratio 20 (6-20) Glucose Level 91 mg/dL (70-99) Calcium Level 8.8 mg/dL (8.5-10.1) Total Bilirubin 0.3 mg/dL (0.2-1.0) Aspartate Amino Transf (AST/SGOT) 20 U/L (15-37) Alanine Aminotransferase (ALT/SGPT) 27 U/L (16-63) Alkaline Phosphatase 91 U/L (46-116) Total Protein 6.7 g/dL (6.4-8.2) Albumin 2.9 g/dL (3.4-5.0) Albumin/Globulin Ratio 0.8 (1.0-1.7) Laboratory Tests Test 09/21/19 09:05 White Blood Count 8.0 x10^3/uL (4.0-11.0) Red Blood Count 4.82 x10^6/uL (4.30-5.70) Hemoglobin 13.7 g/dL (13.0-17.5) Hematocrit 41.5 % (39.0-53.0) Mean Corpuscular Volume 86 fL (79-100) Mean Corpuscular Hemoglobin 29 pg (25-35) Mean Corpuscular Hemoglobin Concent 33 g/dL (31-37) Red Cell Distribution Width 13.8 % (11.5-14.5) Platelet Count 388 x10^3/uL (140-400) Sodium Level 142 mmol/L (136-145) Potassium Level 3.7 mmol/L (3.5-5.1) Chloride Level 106 mmol/L (98-107) Carbon Dioxide Level 26 mmol/L (21-32) Anion Gap 10 (6-14) Blood Urea Nitrogen 14 mg/dL (8-26) Creatinine 0.7 mg/dL (0.7-1.3) Estimated GFR (Cockcroft-Gault) 118.0 BUN/Creatinine Ratio 20 (6-20) Glucose Level 91 mg/dL (70-99) Calcium Level 8.8 mg/dL (8.5-10.1) Total Bilirubin 0.3 mg/dL (0.2-1.0) Aspartate Amino Transf (AST/SGOT) 20 U/L (15-37) Alanine Aminotransferase (ALT/SGPT) 27 U/L (16-63) Alkaline Phosphatase 91 U/L (46-116) Total Protein 6.7 g/dL (6.4-8.2) Albumin 2.9 g/dL (3.4-5.0) Albumin/Globulin Ratio 0.8 (1.0-1.7) Medications Active Scripts Medications Dose Route/Sig Max Daily Dose Days Date Category Impression . 1. Abnormal CT scan revealing left upper lobe thick wall cavitary mass., possible infected bullae/ ? malignancy 2. Severe emphysema. 3. Acute exacerbation of chronic obstructive pulmonary disease. 4. Prior h/o PTX 5. Possible osteoblastic activity seen on CT chest, right 1st rib., sternum 6. Tobacco dependent, recently quit tobacco. 7. History of lymphoma. Plan . PLAN: 1. s/p biopsy of sternum. Prel with no malignancy. Biopsy of left upper lobe mass was high risk for PTX, patient had previous PTX which did not resolve with chest tube 2.For now, we will empirically treat for pneumonia. Follow clinical course and make adjustments as deemed necessary. 3. repeat ct chest in 4-6 weeks, If no improvement, PET and Bronch 4. Follow final results of sternum biopsy. 5. dc home . f/u with DR Olson in 4-6 weeks. Patient will call and make appointment. number given BO BARRETT MD Sep 21, 2019 12:23
--- NOTE | 2019-09-21 13:00 | NUR ---
Discharge information given with follow up to Drs. Olson on Oct 19, 2019 at 11:00, attempted to set up appointment for Dr. Padron given insurance information & demographics, to follow up with Dr. Fraooq in 2 weeks or as needed, see instruction sheets for details.
--- NOTE | 2019-09-21 13:29 | DS ---
DATE OF DISCHARGE: 09/21/2019 HOSPITAL COURSE: The patient is a 54-year-old male patient who was admitted as a transfer from the Emergency Room at [facility] where he presented with cough, shortness of breath, fever and sputum. He has also weight loss of about 15 pounds. He continued to smoke and he quit smoking only a few days prior to admission. He has significant history of non-Hodgkin lymphoma in 2006, underwent chemotherapy and radiation. In the Emergency Room, CT scan of the chest showed that the patient has no pulmonary arterial emboli, also has left upper lobe 8 x 4 x 3 cm thick-walled cavitation up to 1.2 cm numerous satellite nodules, largest of which measures about 1 cm raised the concern for cavitary lung malignancy with satellite lesion. He was seen in consultation by the oncologist and spine supervisor, and a decision was made to biopsy the sternum instead of the lung and he was treated empirically with antibiotic for community-acquired pneumonia and he will be discharged home to continue with oral antibiotic. We can make an appointment for him to be seen by Dr. Padron as an outpatient. PHYSICAL EXAMINATION: GENERAL: When I saw him this morning, he looked well and was clearly in no apparent respiratory distress. No pallor, no jaundice, cyanosis or thyromegaly. No jugular venous distension. VITAL SIGNS: Her heart rate was 75, blood pressure 103/66, temperature 98, respiratory rate was 18 and oxygen saturation was 93%. The rest of clinical exam is stable. LABORATORY DATA: Showed normal white cell count of 8000, hemoglobin 14, hematocrit 42, MCV 86 and platelet count 388,000. DISCHARGE MEDICATIONS: He will be discharged on doxycycline 100 mg twice a day for 7 days and cefdinir 300 mg twice a day for 7 days and albuterol sulfate 2 puffs every 4-6 hours. FINAL DISCHARGE DIAGNOSES: 1. Abnormal CT scan of the chest revealing left upper lobe thick-walled cavitary mass. 2. Severe emphysema. 3. Acute exacerbation of chronic obstructive disease. 4. Satellite nodules. 5. Osteoblastic activity on the CT scan. 6. History of non-Hodgkin lymphoma. 7. Tobacco dependence. The patient will be discharged home to follow with Dr. Padron. YORDAN TRENT MD DR: KIERAN/pop JOB#: [id number] / [id number]
--- NOTE | 2019-09-21 15:07 | PATHOLOGY ---
[facility] Accession Number: [id number] . 01 Material submitted: . sternum - STERNAL BONE BIOPSY . 01 Clinical history: . Sternal sclerotic bone lesion . 02 Diagnosis: Bone, image guided sternal bone biopsy: - Sclerotic bone - negative for malignancy. LBQ 09/21/2019 1329 Local . 02 Comment: Sections of the image guided sternal bone biopsy reveal focally fragmented sclerotic bone. The intact segment of bone has a fatty marrow space focally containing a few hematopoietic cellular elements. There is no evidence of metastatic carcinoma or lymphoma. There is no evidence of primary hematologic malignancy. (JPM/db; 09/21/2019) . 02 Electronically signed: . Johnny Ortiz MD, Pathologist NPI- [id number] . 01 Gross description: . Received in formalin labeled "[place], [place], sternal bone," is a single needle core of light platt bone measuring 1.0 cm in length and 0.2 cm in diameter. The specimen is submitted entirely in cassette A1, following decalcification. (TSD; 09/19/2019) TOB/TOB 09/19/2019 2215 Local . 02 Pathologist provided ICD-10: M89.9 . 02 CPT . 796059, 612403 Specimen Comment: A courtesy copy of this report has been sent to [phone] Specimen Comment: [id number], Specimen Comment: Report sent to ,DR BARRETT / DR TRENT Performed at: [address], [place], [place] [id number] MD Damián Flores MD Phone: [phone] Performed at: 02 [facility] [address], [place] [id number] MD Johnny Ortiz MD Phone: [phone]
== END 2019-09-21 14:39 | disposition home or self-care (01) | DRG 190 ==
LOC: 4 NORTH 02:48
PROVIDERS: ADMIT Internal Medicine; ATTEND Internal Medicine
PROC: 07DQ3ZX Extraction of Sternum Bone Marrow, Percutaneous Approach, Diagnostic (ICD-10-PCS; principal; 2019-09-19)
DX: J44.1 Chronic obstructive pulmonary disease with (acute) exacerbation (principal); J15.6 Pneumonia due to other Gram-negative bacteria; J15.9 Unspecified bacterial pneumonia; C85.90 Non-Hodgkin lymphoma, unspecified, unspecified site; J44.0 Chronic obstructive pulmonary disease with (acute) lower respiratory infection; F12.90 Cannabis use, unspecified, uncomplicated; F17.210 Nicotine dependence, cigarettes, uncomplicated; J98.4 Other disorders of lung; Z80.6 Family history of leukemia; Z82.3 Family history of stroke; Z82.49 Family history of ischemic heart disease and other diseases of the circulatory system; Z83.3 Family history of diabetes mellitus; Z92.21 Personal history of antineoplastic chemotherapy; Z92.3 Personal history of irradiation
CPT/HCPCS: 20220; 36415; 70470; 74177; 77012; 78306; 80048; 80053; 85025; 85027; 85610; 85730; 86481; 87070; 87205; 88304; 88311; 94640; 99152; 99153; A9503; J0696; J2250; J2543; J3010; J3490; J7613; G0378